=== PATIENT | male | born 1980 | race African-American/Black ===

== ENCOUNTER 2019-09-20 19:24 | Emergency (ER) | payer OTHER, SELFPAY ==
[2019-09-20 20:16] LABS: Absolute Lymphocytes (CBC) 2.2 K/uL (0.7-4.9); Basophils % 0.6 % (0-1.3); Hematocrit 40.2 % (39.6-49.0); Lymphocytes % 19.4 % (15.3-44.8); RBC Red Blood Cell Count 4.37 M/uL (4.33-5.43)
[2019-09-20 20:17] LABS: Protime INR 1.1
[2019-09-20 20:25] LABS: Arterial Blood Carboxyhemoglob 1.2 % (0-1.5); Blood O2 Saturation 92.8 % (92-98.5)
[2019-09-20] MEDS ORDERED: ALBUTEROL 2.5 MG/3 ML NEB SOL ONE (20:28)
[2019-09-20] MEDS ORDERED: FUROSEMIDE 40 MG/4 ML VIAL ONE (20:28)
[2019-09-20] MEDS ORDERED: IPRATROPIUM BROM 0.5MG/2.5ML ONE ×2 (20:28→21:26)
[2019-09-20] MEDS ORDERED: LEVALBUTEROL 1.25 MG/3 ML NEB ONE ×2 (20:33→21:27)
[2019-09-20] MEDS ORDERED: LORAZEPAM 1 MG TABLET ONE (20:33)
[2019-09-20 20:34] LABS: ALT/SGPT 36 U/L (12-78); AST/SGOT 31 U/L (15-37); Albumin 3.4 g/dL (3.4-5.0); Alkaline Phosphatase 108 U/L (45-117); BUN Blood Urea Nitrogen 12 mg/dL (7-18); Bicarbonate 27 mmol/L (21-32); Bilirubin Direct 0.2 mg/dL (0-0.2); Bilirubin Total 0.4 mg/dL (0.2-1.0); Glucose Level 103 mg/dL (74-106); NT PRO-BNP 1907 pg/mL (<125); Potassium 4.1 mmol/L (3.5-5.1); Protein, Total 7.7 g/dL (6.4-8.2); Sodium Level 140 mmol/L (136-145); Troponin (Emerg Dept Use Only) < 0.02 ng/mL (0.0-0.045)
[2019-09-20] MEDS ORDERED: METOPROLOL TARTRATE 5 MG/5 ML INJ IV ONE (20:34)
--- NOTE | 2019-09-20 20:40 | RAD REPORT ---
EXAM DESCRIPTION: Stan Single View09/20/2019 8:26 pm CLINICAL HISTORY: Chest pain COMPARISON: none FINDINGS: Mild to moderate bilateral pulmonary opacities The heart is markedly enlarged IMPRESSION: Mild to moderate CHF
[2019-09-20] MEDS ORDERED: HYDROCODONE/CHLORPHEN 5 ML/OSYR ONE (21:12)
[2019-09-20] MEDS ORDERED: METHYLPREDNISOLONE 125 MG INJ ONE (21:26)
[2019-09-20 21:30] LABS: Urine Blood NEGATIVE (NEG); Urine Glucose NEGATIVE (NEG); Urine Protein NEGATIVE (NEG)
[2019-09-20] MEDS ORDERED: CEFTRIAXONE/SWI 1gm 1 GM/10 ML SYR ONE (21:33)
[2019-09-20 22:10] LABS: Barbiturates NEGATIVE (NEGATIVE); Benzodiazepines NEGATIVE (NEGATIVE); Cocaine NEGATIVE (NEGATIVE); METHAMPHETAM NEGATIVE (NEGATIVE); Methadone NEGATIVE (NEGATIVE); Opiates NEGATIVE (NEGATIVE); Phencyclidine NEGATIVE (NEGATIVE); THC Cannibis POSITIVE (NEGATIVE)
--- NOTE | 2019-09-20 22:46 | EDPHYS ---
Physician Documentation [facility] Name: Zane Lobo Age: 39 yrs Sex: Male : 1980 Arrival Date: 09/20/2019 Time: 19:35 Bed 16 Private MD: ED Physician Mirza Stevenson HPI: 09/20 20:10 This 39 yrs old Black Male presents to ER via Ambulatory with complaints of Chest Pain, pkl Chest Tightness, Cough, Shortness Of Breath. 20:10 The patient or guardian reports chest pain that is located primarily in the substernal pkl area. The pain does not radiate. Associated signs and symptoms: Pertinent positives: cough, shortness of breath. The chest pain is described as tightness. The patient has experienced similar episodes in the past, a few times. Patient said he has CHF, hypertension and asthma. has been out of medications for a few months. Historical: - Allergies: 19:38 No Known Allergies; rr5 - Home Meds: 19:38 Lisinopril Oral [Active]; Metoprolol Tartrate Oral [Active]; Furosemide Oral [Active]; rr5 - PMHx: 19:38 CHF; Hypertension; rr5 19:46 Asthma; rr5 - PSHx: 19:38 leg surgery; rr5 - Immunization history:: Adult Immunizations up to date. - Social history:: Smoking status: Patient uses tobacco products, smokes one pack cigarettes per day. Patient uses street drugs, marijuana. - Ebola Screening: : Patient negative for fever greater than or equal to 101.5 degrees Fahrenheit, and additional compatible Ebola Virus Disease symptoms Patient denies exposure to infectious person Patient denies travel to an Ebola-affected area in the 21 days before illness onset. ROS: 20:10 Eyes: Negative for injury, pain, redness, and discharge, ENT: Negative for injury, pkl pain, and discharge, Neck: Negative for injury, pain, and swelling. 20:10 Cardiovascular: Positive for chest pain, with cough. 20:10 Respiratory: Positive for cough, with clear sputum, shortness of breath, wheezing. 20:10 Abdomen/GI: Negative for abdominal pain, nausea, vomiting, and diarrhea. 20:10 Back: Negative for acute changes. 20:10 : Negative for urinary symptoms. 20:10 MS/extremity: Negative for acute changes. 20:10 Skin: Negative for rash. 20:10 Neuro: Negative for altered mental status. Exam: 20:10 Head/Face: Normocephalic, atraumatic. Eyes: Pupils equal round and reactive to light, pkl extra-ocular motions intact. Lids and lashes normal. Conjunctiva and sclera are non-icteric and not injected. Cornea within normal limits. Periorbital areas with no swelling, redness, or edema. ENT: Nares patent. No nasal discharge, no septal abnormalities noted. Tympanic membranes are normal and external auditory canals are clear. Oropharynx with no redness, swelling, or masses, exudates, or evidence of obstruction, uvula midline. Mucous membranes moist. Neck: Trachea midline, no thyromegaly or masses palpated, and no cervical lymphadenopathy. Supple, full range of motion without nuchal rigidity, or vertebral point tenderness. No Meningismus. Chest/axilla: Normal chest wall appearance and motion. Nontender with no deformity. No lesions are appreciated. Cardiovascular: Regular rate and rhythm with a normal S1 and S2. No gallops, murmurs, or rubs. Normal PMI, no JVD. No pulse deficits. 20:10 Respiratory: the patient does not display signs of respiratory distress, Respirations: normal, Breath sounds: bronchial sounds, that are mild, are scattered, rhonchi, that are mild, are scattered. 20:10 Abdomen/GI: Bowel sounds: normal, Palpation: abdomen is soft and non-tender, in all quadrants. 20:10 Back: Exam negative for acute changes. 20:10 : Exam negative for acute changes. 20:10 Musculoskeletal/extremity: Exam is negative for acute changes. 20:10 Skin: Exam negative for rash. 20:10 Neuro: Orientation: is normal, Mentation: is normal, Cranial nerves: grossly normal, Motor: is normal. Vital Signs: 19:36 BP 117 / 95; Pulse 106; Resp 26; Temp 98.3; Pulse Ox 96% ; Weight 131.54 kg; Height 5 rr5 ft. 8 in. (172.72 cm); Pain 8/10; 20:22 BP 138 / 89; Pulse 115; Resp 22; Pulse Ox 96% on R/A; ca1 21:04 BP 130 / 88; Pulse 107; Resp 24; Pulse Ox 96% on R/A; ca1 21:54 BP 104 / 74; Pulse 105; Resp 20 S; Pulse Ox 99% on R/A; ca1 22:59 BP 140 / 87; Pulse 95; Resp 17; Temp 98.5; Pulse Ox 98% ; rr5 19:36 Body Mass Index 44.09 (131.54 kg, 172.72 cm) rr5 MDM: 19:50 Patient medically screened. pkl 22:33 Data reviewed: vital signs, nurses notes, lab test result(s), EKG, radiologic studies, pkl plain films. ED course: Patient feeling much better. Discussed lab. and X' rays results with patient. Advised to follow up with cardiology and PCP next week. Patient understood instructions. 09/20 19:59 Order name: Basic Metabolic Panel; Complete Time: 20:44 pkl 09/20 19:59 Order name: CBC with Diff; Complete Time: 20:44 pkl 09/20 19:59 Order name: LFT's; Complete Time: 20:44 pkl 09/20 19:59 Order name: Magnesium; Complete Time: 20:44 pkl 09/20 19:59 Order name: NT PRO-BNP; Complete Time: 20:44 pkl 09/20 19:59 Order name: PT-INR; Complete Time: 20:44 pkl 09/20 19:59 Order name: Troponin (emerg Dept Use Only); Complete Time: 20:44 pkl 09/20 20:01 Order name: Flu; Complete Time: 21:16 pkl 09/20 20:01 Order name: Strep; Complete Time: 21:16 pkl 09/20 20:01 Order name: UDS; Complete Time: 22:23 pkl 09/20 20:01 Order name: ABG; Complete Time: 20:44 pkl 30 20:01 Order name: Lactate; Complete Time: 20:44 pkl 30 20:49 Order name: Throat Culture EDMS 09/20 21:26 Order name: Urine Dipstick--Ancillary (enter results); Complete Time: 22:23 ar5 09/20 19:59 Order name: XRAY Chest (1 view); Complete Time: 21:16 pkl 09/20 19:59 Order name: EKG; Complete Time: 20:00 pkl 09/20 19:59 Order name: Cardiac monitoring; Complete Time: 20:03 pkl 09/20 19:59 Order name: EKG - Nurse/Tech; Complete Time: 20:03 pkl 09/20 19:59 Order name: IV Saline Lock; Complete Time: 20:03 pkl 09/20 19:59 Order name: Labs collected and sent; Complete Time: 20:03 pkl 09/20 19:59 Order name: O2 Per Protocol; Complete Time: 20:03 pkl 09/20 19:59 Order name: O2 Sat Monitoring; Complete Time: 20:03 pkl Administered Medications: 20:28 Not Given (Physician Discretion): Albuterol - atroVENT (3:1) (2.5 mg - 0.5 mg) 3 ml ca1 Nebulizer once 20:30 Drug: Ativan 1 mg Route: PO; ca1 21:07 Follow up: Response: No adverse reaction; Anxiety decreased ca1 20:31 Drug: Xopenex (3) 1.25 mg Route: Inhalation; ca1 20:31 Drug: AtroVENT Aerosol 0.5 mg Route: Inhalation; ca1 20:33 Drug: Lopressor 5 mg Route: IVP; Site: left antecubital; ca1 21:07 Follow up: Response: No adverse reaction ca1 20:55 Drug: Lasix 40 mg Route: IVP; Site: left antecubital; ca1 21:08 Follow up: Response: No adverse reaction ca1 21:11 Drug: Tussionex Pennkinetic ER 5 ml Route: PO; ca1 21:26 Follow up: Response: No adverse reaction; Marked relief of symptoms ca1 21:23 Drug: SOLU-Medrol 125 mg Route: IVP; Site: left antecubital; ca1 21:57 Follow up: Response: No adverse reaction; Marked relief of symptoms ca1 21:23 Drug: Xopenex (3) 1.25 mg Route: Inhalation; ca1 21:23 Drug: AtroVENT Aerosol 0.5 mg Route: Inhalation; ca1 21:31 Drug: Rocephin - (cefTRIAXone) 1 grams Route: IVPB; Infused Over: 30 mins; Site: left ca1 antecubital; 21:57 Follow up: Response: No adverse reaction; IV Status: Completed infusion ca1 Disposition: 09/20/19 22:45 Discharged to Home. Impression: Congestive heart failure. Asthmatic bronchitis. - Condition is Stable. - Prescriptions for Lipitor 10 mg Oral Tablet - take 1 tablet by ORAL route once daily; 30 tablet. Lasix 40 mg Oral Tablet - take 1 tablet by ORAL route 2 times per day for 30 days; 60 tablet. Potassium Chloride 10 mEq Oral Capsule, Sustained Release - take 1 tablet by ORAL route every 12 hours; 60 tablet. Metoprolol Tartrate 25 mg Oral Tablet - take 1 tablet by ORAL route once daily with a meal; 30 tablet. Lisinopril 5 mg Oral Tablet - take 1 tablet by ORAL route once daily; 20 tablet. Zithromax Z- Aime 250 mg Oral Tablet - take 1 tablet by ORAL route as directed for 5 days Day 1 - take two (2) tablets one time. Day 2, 3, 4 , 5 take one (1) tablet once daily.; 6 tablet. Albuterol Sulfate 90 mcg/actuation - inhale 1-2 puff by INHALATION route every 4-6 hours; 1 Inhaler. Guaifenesin AC 10- 100 mg/5 mL Oral Liquid - take 10 milliliters by ORAL route every 8 hours As needed; 120 milliliter. - Medication Reconciliation Form, Thank You Letter, Antibiotic Education, Prescription Opioid Use form. - Follow up: Luis M Valladares MD; When: 1 week; Reason: Re-evaluation by your physician. - Problem is new. - Symptoms have improved. Signatures: Dispatcher [employer] [facility] Mirza Stevenson MD MD pkl Siva Morgan, RN RN rr5 Lisa Boucher RN RN ca1 Corrections: (The following items were deleted from the chart) 23:15 22:45 09/20/2019 22:45 Discharged to Home. Impression: Congestive heart failure. rr5 Asthmatic bronchitis. Condition is Stable. Forms are Medication Reconciliation Form, Thank You Letter, Antibiotic Education, Prescription Opioid Use. Follow up: Luis M Valladares; When: 1 week; Reason: Re-evaluation by your physician. Problem is new. Symptoms have improved. pkl
--- NOTE | 2019-09-20 22:46 | ER ---
Nurse's Notes [facility] Name: Zane Lobo Age: 39 yrs Sex: Male : 1980 Arrival Date: 09/20/2019 Time: 19:35 Bed 16 Private MD: Diagnosis: Congestive heart failure. Asthmatic bronchitis Presentation: 09/20 19:35 Presenting complaint: Patient states: the center of chest is getting tight going to rr5 back started 2 days ago. I have congestive heart failure, having cough, wheezing and shortness of breath. Transition of care: patient was not received from another setting of care. Onset of symptoms was September 18, 2019. Risk Assessment: Do you want to hurt yourself or someone else? Patient reports no desire to harm self or others. Initial Sepsis Screen: Does the patient meet any 2 criteria? No. Patient's initial sepsis screen is negative. Does the patient have a suspected source of infection? No. Patient's initial sepsis screen is negative. Care prior to arrival: None. 19:35 Method Of Arrival: Ambulatory rr5 19:35 Acuity: RAAD 3 rr5 Triage Assessment: 19:46 General: Appears in no apparent distress. uncomfortable, Behavior is calm, cooperative, rr5 appropriate for age. Cardiovascular: Capillary refill < 3 seconds Patient's skin is warm and dry. Respiratory: Airway is patent Respiratory effort is even, unlabored, Respiratory pattern is regular, symmetrical. Historical: - Allergies: 19:38 No Known Allergies; rr5 - Home Meds: 19:38 Lisinopril Oral [Active]; Metoprolol Tartrate Oral [Active]; Furosemide Oral [Active]; rr5 - PMHx: 19:38 CHF; Hypertension; rr5 19:46 Asthma; rr5 - PSHx: 19:38 leg surgery; rr5 - Immunization history:: Adult Immunizations up to date. - Social history:: Smoking status: Patient uses tobacco products, smokes one pack cigarettes per day. Patient uses street drugs, marijuana. - Ebola Screening: : Patient negative for fever greater than or equal to 101.5 degrees Fahrenheit, and additional compatible Ebola Virus Disease symptoms Patient denies exposure to infectious person Patient denies travel to an Ebola-affected area in the 21 days before illness onset. Screenin:55 Abuse screen: Denies threats or abuse. Denies injuries from another. Nutritional ca1 screening: No deficits noted. Tuberculosis screening: No symptoms or risk factors identified. Fall Risk IV access (20 points). Assessment: 19:55 General: Appears in no apparent distress. comfortable, Behavior is calm, cooperative, ca1 appropriate for age. Pain: Complains of pain in mid-sternal area Pain radiates to back Pain currently is 8 out of 10 on a pain scale. Quality of pain is described as sharp, Pain began 2-3 days ago. Is intermittent, Aggravated by coughing. Neuro: Level of Consciousness is awake, alert, obeys commands, Oriented to person, place, time, situation, Appropriate for age. Cardiovascular: Heart tones S1 S2 present Capillary refill < 3 seconds Patient's skin is warm and dry. Pulses are all present. Edema is absent. Rhythm is sinus tachycardia. Respiratory: Reports shortness of breath cough that is since 2-3 days ago Airway is patent Trachea midline Respiratory effort is even, unlabored, Respiratory pattern is regular, symmetrical, Breath sounds with wheezes bilaterally. GI: Abdomen is round non-distended, Bowel sounds present X 4 quads. Abd is soft and non tender X 4 quads. : No deficits noted. No signs and/or symptoms were reported regarding the genitourinary system. EENT: Parent/caregiver reports the patient having nasal congestion since 2-3 days ago. Derm: Skin is intact, is healthy with good turgor, Skin is pink, warm \T\ dry. Musculoskeletal: Circulation, motion, and sensation intact. Capillary refill < 3 seconds, Range of motion: intact in all extremities. 20:22 Reassessment: Patient appears in no apparent distress at this time. Patient is alert, ca1 oriented x 3, equal unlabored respirations, skin warm/dry/pink. 21:04 Reassessment: Patient appears in no apparent distress at this time. Patient is alert, ca1 oriented x 3, equal unlabored respirations, skin warm/dry/pink. 21:53 Reassessment: Patient appears in no apparent distress at this time. Patient is alert, ca1 oriented x 3, equal unlabored respirations, skin warm/dry/pink. 23:13 Reassessment: Patient appears in no apparent distress at this time. Patient is alert, rr5 oriented x 3, equal unlabored respirations, skin warm/dry/pink. discharge instruction given and explained without complaints made, verbalized understanding. Patient states feeling better. Patient states symptoms have improved. Vital Signs: 19:36 BP 117 / 95; Pulse 106; Resp 26; Temp 98.3; Pulse Ox 96% ; Weight 131.54 kg; Height 5 rr5 ft. 8 in. (172.72 cm); Pain 8/10; 20:22 BP 138 / 89; Pulse 115; Resp 22; Pulse Ox 96% on R/A; ca1 21:04 BP 130 / 88; Pulse 107; Resp 24; Pulse Ox 96% on R/A; ca1 21:54 BP 104 / 74; Pulse 105; Resp 20 S; Pulse Ox 99% on R/A; ca1 22:59 BP 140 / 87; Pulse 95; Resp 17; Temp 98.5; Pulse Ox 98% ; rr5 19:36 Body Mass Index 44.09 (131.54 kg, 172.72 cm) rr5 ED Course: 19:35 Patient arrived in ED. cf2 19:36 Triage completed. rr5 19:39 Arm band placed on. rr5 19:45 EKG completed in triage. Results shown to MD. rr5 19:50 Mirza Stevenson MD is Attending Physician. pkl 19:52 Lisa Boucher, ILZY is Primary Nurse. ca1 19:55 Patient has correct armband on for positive identification. Placed in gown. Bed in low ca1 position. Call light in reach. Side rails up X 1. surveillance system monitor on. Pulse ox on. NIBP on. Warm blanket given. 19:55 No provider procedures requiring assistance completed. Initial lab(s) drawn, by sc, ca1 sent to lab. Inserted saline lock: 20 gauge in right antecubital area, using aseptic technique. Blood collected. 20:24 XRAY Chest (1 view) In Process Unspecified. EDMS 22:44 Luis M Valladares MD is Referral Physician. pkl 23:14 IV discontinued, intact, bleeding controlled, No redness/swelling at site. Pressure rr5 dressing applied. Administered Medications: 20:28 Not Given (Physician Discretion): Albuterol - atroVENT (3:1) (2.5 mg - 0.5 mg) 3 ml ca1 Nebulizer once 20:30 Drug: Ativan 1 mg Route: PO; ca1 21:07 Follow up: Response: No adverse reaction; Anxiety decreased ca1 20:31 Drug: Xopenex (3) 1.25 mg Route: Inhalation; ca1 20:31 Drug: AtroVENT Aerosol 0.5 mg Route: Inhalation; ca1 20:33 Drug: Lopressor 5 mg Route: IVP; Site: left antecubital; ca1 21:07 Follow up: Response: No adverse reaction ca1 20:55 Drug: Lasix 40 mg Route: IVP; Site: left antecubital; ca1 21:08 Follow up: Response: No adverse reaction ca1 21:11 Drug: Tussionex Pennkinetic ER 5 ml Route: PO; ca1 21:26 Follow up: Response: No adverse reaction; Marked relief of symptoms ca1 21:23 Drug: SOLU-Medrol 125 mg Route: IVP; Site: left antecubital; ca1 21:57 Follow up: Response: No adverse reaction; Marked relief of symptoms ca1 21:23 Drug: Xopenex (3) 1.25 mg Route: Inhalation; ca1 21:23 Drug: AtroVENT Aerosol 0.5 mg Route: Inhalation; ca1 21:31 Drug: Rocephin - (cefTRIAXone) 1 grams Route: IVPB; Infused Over: 30 mins; Site: left ca1 antecubital; 21:57 Follow up: Response: No adverse reaction; IV Status: Completed infusion ca1 Outcome: 22:45 Discharge ordered by . pkl 23:14 Discharged to home ambulatory, with family. rr5 23:14 Condition: stable 23:14 Discharge instructions given to patient, Instructed on discharge instructions, follow up and referral plans. medication usage, Demonstrated understanding of instructions, follow-up care, medications, Prescriptions given X x8 23:15 Patient left the ED. rr5 Signatures: Dispatcher [employer] EDMS Mirza Stevenson MD MD pkl Siva Morgan RN RN rr5 Lisa Boucher RN RN ca1 Roderick Brunner cf2 Corrections: (The following items were deleted from the chart) 20:37 19:55 Respiratory: Reports shortness of breath cough that is since 2-3 days ago Airway ca1 is patent Trachea midline Respiratory effort is even, unlabored, Breath sounds are clear bilaterally. ca1 23:13 22:59 BP 140 / 87; Pulse 95bpm; Resp 17bpm; Pulse Ox 98%; rr5 rr5
[2019-09-21 01:27] VITALS: BP 140/87; TEMP 98.5; O2SAT 98
--- NOTE | 2019-09-21 14:07 | EKG ---
Test Date: 2019-09-20 Test Time: 19:45:28 [employer]le [employer] Machine: RR MEASUREMENT RESULTS: Intervals: Rate: 113 AL: 170 QRSD: 96 QT: 338 QTc: 463 [place]: P: 66 AL: 170 QRS: 62 T: 32 INTERPRETIVE STATEMENTS: Sinus tachycardia T wave abnormality, consider lateral ischemia Abnormal ECG No previous ECG available for comparison Electronically Signed On 09-21-19 14:06:06 [employer] by Luis M Valladares
== END 2019-09-20 23:15 | disposition home or self-care (01) ==
LOC: ER 19:24
DX: J40 Bronchitis, not specified as acute or chronic (principal); I50.9 Heart failure, unspecified; F17.210 Nicotine dependence, cigarettes, uncomplicated
CPT/HCPCS: 96365; 93005; 87070; 85025; 80048; 36415; 83735; 85610; 80076; 87081; 80307 ×8; 83605; 81003; 84484; 83880; 87804 ×2; 71045; 82805; 96375; 99285; J1940; J0696; J2930